=== PATIENT | female | born 1955 | race Caucasian/White ===

== ENCOUNTER 2017-01-26 18:07 | Inpatient (IN) | payer OTHER ==
[~2017-01-26] VITALS: Ht 157.5 cm; Wt 112.0 kg
[2017-01-26 18:56] LABS: HEMATOCRIT 29.7 % (36.0-46.0); MCH 29.2 PG (29.0-34.0); MCHC 32.7 G/DL (30.0-36.0); MCV 89.5 FL (83-99); MEAN PLAT.VOLUME 11.2 uM^3 (9.5-12.4); PLATELET COUNT 153 K/uL (156-360); RBC DIS.WIDTH-CV 12.9 % (11.8-14.6); RBC DIS.WIDTH-SD 42.4 % (39-53); RED BLOOD COUNT 3.32 M/uL (3.80-5.20)
[2017-01-26 19:05] LABS: CHLORIDE 98 mEq/L (99-109)
[2017-01-26 19:06] LABS: POTASSIUM 4.5 mEq/L (3.7-5.4); SODIUM 127 mEq/L (136-147)
[2017-01-26 19:07] LABS: GLUCOSE 83 mg/dL (70-99)
[2017-01-26 19:09] LABS: ANION GAP 11 MEQ/L (2-14)
[2017-01-26 19:11] LABS: GFR ESTIMATE (CALCULATED) 7 mL/min/
[2017-01-26 19:12] LABS: UREA NITROGEN (BUN) 48 mg/dL (9-23)
[2017-01-26 19:18] LABS: TROP-I INTERPRETATION NEGATIVE; TROPONIN-I < 0.01 ng/mL (0.0-0.30)
[2017-01-26 19:27] LABS: ADD MIUA? YES; BILIRUBIN NEGATIVE; BLOOD NEGATIVE; COLOR YELLOW ((YELLOW)); GLUCOSE (STRIP) NEGATIVE; KETONES NEGATIVE; LEUKOCYTES TRACE; NITRITE NEGATIVE; PROTEIN (STRIP) 30; SPECIFIC GRAVITY 1.012 (1.000-1.030); UROBILINOGEN 0.2 MG/DL (0.2-1.0)
[2017-01-26 19:30] LABS: BACTERIA RARE /HPF; EPITHELIAL CELLS RARE /HPF; GRANULAR CASTS 0-5 /LPF; HYALINE CASTS 0-5 /LPF; MUCUS TRACE /LPF; RED BLOOD CELLS 0-5 /HPF (0-5); UCUL ADDED? NO; UNCLASSIFIED CASTS 0-5 /LPF; WHITE BLOOD CELLS 0-5 /HPF (0-5)
[2017-01-26] MEDS ORDERED: NEXIUM40 MG PO (22:29)
[2017-01-26] MEDS ORDERED: CLONAZEPAM0.5 MG PO (22:32)
[2017-01-26] MEDS ORDERED: SEROQUEL100 MG PO (22:33)
[2017-01-26] MEDS ORDERED: CYMBALTA60 MG PO (22:34)
[2017-01-26] MEDS ORDERED: CYMBALTA20 MG PO (22:35)
[2017-01-26] MEDS ORDERED: TOPAMAX200 MG PO (22:35)
[2017-01-26] MEDS ORDERED: SIMVASTATIN40 MG PO (22:36)
[2017-01-26] MEDS ORDERED: LEVOTHYROXINE75 MCG PO (22:37)
[2017-01-26] MEDS ORDERED: LISINOPRIL10 MG PO (22:38)
[2017-01-26] MEDS ORDERED: VITAMIN D2000 UNI1 PO (22:43)
[2017-01-26] MEDS ORDERED: LYRICA150 MG PO (22:43)
[2017-01-26] MEDS ORDERED: TRAMADOL HCL50 MG PO (22:44)
[2017-01-26] MEDS ORDERED: FIORINAL 50-321 EACH PO (22:45)
[2017-01-26 23:20] VITALS: BP 91/66
[2017-01-27 04:05] VITALS: BP 92/54
[2017-01-27 04:18] LABS: HEMATOCRIT 28.6 % (36.0-46.0); MCH 28.8 PG (29.0-34.0); MCHC 32.9 G/DL (30.0-36.0); MCV 87.7 FL (83-99); MEAN PLAT.VOLUME 11.5 uM^3 (9.5-12.4); PLATELET COUNT 131 K/uL (156-360); RBC DIS.WIDTH-CV 12.8 % (11.8-14.6); RBC DIS.WIDTH-SD 41.2 % (39-53); RED BLOOD COUNT 3.26 M/uL (3.80-5.20); WHITE BLOOD COUNT 5.2 K/uL (4.1-10.2)
[2017-01-27 04:48] LABS: CHLORIDE 104 mEq/L (99-109); POTASSIUM 4.7 mEq/L (3.7-5.4); SODIUM 133 mEq/L (136-147)
[2017-01-27 05:06] LABS: GLUCOSE 99 mg/dL (70-99)
[2017-01-27 05:08] LABS: ANION GAP 9 MEQ/L (2-14)
[2017-01-27 05:10] LABS: GFR ESTIMATE (CALCULATED) 11 mL/min/
[2017-01-27 05:11] LABS: UREA NITROGEN (BUN) 42 mg/dL (9-23)
[2017-01-27 06:57] VITALS: BP 110/53
[2017-01-27 11:20] LABS: CK-MB 3.3 ng/mL (0.0-4.9)
[2017-01-27 12:10] VITALS: BP 116/56
[2017-01-27 12:22] LABS: CREATINE KINASE 156 IU/L (1-294); TOTAL CK 156 IU/L (1-294)
[2017-01-27] MEDS ORDERED: ERGOCALCIF50000 UNIT PO (13:21)
[2017-01-27] MEDS ORDERED: OMEPRAZOLE40 M1 PO (13:21)
[2017-01-27] MEDS ORDERED: MELATONIN3 MG PO (13:23)
[2017-01-27] MEDS ORDERED: ZYRTEC10 M3 PO (13:23)
[2017-01-27] MEDS ORDERED: IMODIUM A-D2 M2 PO (13:24)
[2017-01-27 15:43] VITALS: BP 115/76
[2017-01-27 19:30] VITALS: BP 131/60
[2017-01-28] VITALS (7 sets, daily range): BP systolic 121–168; BP diastolic 58–74
[2017-01-28 06:02] LABS: EOSINOPHIL (%) 3.7 % (0-5); EOSINOPHIL COUNT 0.1 K/uL (0-0.3); HEMATOCRIT 29.3 % (36.0-46.0); IMMATURE GRANULOCYTE (%) 0.4 % (0.0-0.7); INSTRUMENT ABS NEUTROPHIL CT 1.2 K/uL; LYMPHOCYTE COUNT 0.8 K/uL (1.0-2.8); MCH 29.8 PG (29.0-34.0); MCHC 33.1 G/DL (30.0-36.0); MCV 89.9 FL (83-99); MEAN PLAT.VOLUME 11.3 uM^3 (9.5-12.4); MONOCYTE (%) 13.3 % (3-12); MONOCYTE COUNT 0.3 K/uL (0-0.8); NEUTROPHIL (%) 48.6 % (45-76); NEUTROPHIL COUNT 1.2 K/uL (1.8-6.4); PLATELET COUNT 132 K/uL (156-360); RBC DIS.WIDTH-CV 13.2 % (11.8-14.6); RBC DIS.WIDTH-SD 43.8 % (39-53); RED BLOOD COUNT 3.26 M/uL (3.80-5.20); WHITE BLOOD COUNT 2.4 K/uL (4.1-10.2)
[2017-01-28 10:01] LABS: ANION GAP 8 MEQ/L (2-14); CHLORIDE 114 MEQ/L (99-109); GLUCOSE 107 mg/dL (70-99); POTASSIUM 4.7 MEQ/L (3.7-5.4); SAMPLE HEMOLYSIS CHECK 0; SAMPLE ICTERIC CHECK 0; SAMPLE LIPEMIA CHECK 0; UREA NITROGEN (BUN) 24 mg/dL (9-23)
[2017-01-28 10:05] LABS: GFR ESTIMATE (CALCULATED) 37 mL/min/; SODIUM 143 MEQ/L (136-147)
[2017-01-28 13:55] LABS: UR CREATININE CONCENTRATION 75.5 MG/DL
[2017-01-29 04:04] VITALS: BP 139/74
[2017-01-29 07:03] LABS: EOSINOPHIL (%) 1.8 % (0-5); EOSINOPHIL COUNT 0.1 K/uL (0-0.3); HEMATOCRIT 28.4 % (36.0-46.0); INSTRUMENT ABS NEUTROPHIL CT 2.8 K/uL; LYMPHOCYTE COUNT 0.8 K/uL (1.0-2.8); MCH 29.7 PG (29.0-34.0); MCHC 33.5 G/DL (30.0-36.0); MCV 88.8 FL (83-99); MONOCYTE COUNT 0.4 K/uL (0-0.8); NEUTROPHIL (%) 68.7 % (45-76); NEUTROPHIL COUNT 2.8 K/uL (1.8-6.4); NRBC (%) 1.5 /100 WBC (0-0); RBC DIS.WIDTH-CV 13.4 % (11.8-14.6); RBC DIS.WIDTH-SD 43.6 % (39-53)
[2017-01-29 07:12] LABS: ANION GAP 12 MEQ/L (2-14); CHLORIDE 116 MEQ/L (99-109); GFR ESTIMATE (CALCULATED) 40 mL/min/; GLUCOSE 97 mg/dL (70-99); MAGNESIUM 1.4 mg/dl (1.3-2.7); POTASSIUM 5.1 MEQ/L (3.7-5.4); SAMPLE HEMOLYSIS CHECK 0; SAMPLE ICTERIC CHECK 0; SAMPLE LIPEMIA CHECK 0; SODIUM 145 MEQ/L (136-147); UREA NITROGEN (BUN) 15 mg/dL (9-23)
[2017-01-29 07:38] LABS: PLAT.SUFFICIENCY ADEQUATE; PLATELET CLUMPS PRESENT - PLATELET COUNT APPEARS ADQ.
[2017-01-29 07:49] LABS: PLATELET COUNT UNABLE TO REPORT K/uL (156-360)
[2017-01-29 11:45] VITALS: BP 151/71
[2017-01-29 15:42] VITALS: BP 143/67
[2017-01-29 22:45] VITALS: BP 124/59
[2017-01-30 07:12] VITALS: BP 137/66
[2017-01-30 08:57] LABS: MCHC 32.3 G/DL (30.0-36.0); MCV 89.8 FL (83-99); MEAN PLAT.VOLUME 11.4 uM^3 (9.5-12.4); NRBC (%) 0.4 /100 WBC (0-0); RBC DIS.WIDTH-CV 13.2 % (11.8-14.6); RBC DIS.WIDTH-SD 43.8 % (39-53); RED BLOOD COUNT 3.34 M/uL (3.80-5.20); WHITE BLOOD COUNT 5.1 K/uL (4.1-10.2)
[2017-01-30 09:00] LABS: PLATELET COUNT 127 K/uL (156-360)
[2017-01-30 09:15] LABS: ANION GAP 7 MEQ/L (2-14); CHLORIDE 112 MEQ/L (99-109); GFR ESTIMATE (CALCULATED) 44 mL/min/; GLUCOSE 87 mg/dL (70-99); MAGNESIUM 1.3 mg/dl (1.3-2.7); POTASSIUM 4.3 MEQ/L (3.7-5.4); SAMPLE HEMOLYSIS CHECK 0; SAMPLE ICTERIC CHECK 0; SAMPLE LIPEMIA CHECK 0; SODIUM 143 MEQ/L (136-147); UREA NITROGEN (BUN) 10 mg/dL (9-23)
[2017-01-30] MEDS ORDERED: LISINOPRIL10 MG PO (10:48)
[2017-01-30] MEDS ORDERED: COLESTID1 GM PO (10:48)
== END 2017-01-30 13:59 | disposition home health service (06) | DRG 683 ==
LOC: EME 18:07 → EDOF 20:22 → 5EAST 20:22 → ENRESERV 20:28 → 5EAST 21:36
PROVIDERS: Emergency Medicine; Hospitalist; Internal Medicine; Internal Medicine Nephrology
DX: N17.0 Acute kidney failure with tubular necrosis (principal); E87.1 Hypo-osmolality and hyponatremia; E87.2 Acidosis; K21.9 Gastro-esophageal reflux disease without esophagitis; I12.9 Hypertensive chronic kidney disease with stage 1 through stage 4 chronic kidney disease, or unspecified chronic kidney disease; N18.3 Chronic kidney disease, stage 3 (moderate); D61.818 Other pancytopenia; F41.9 Anxiety disorder, unspecified; F32.9 Major depressive disorder, single episode, unspecified; E78.5 Hyperlipidemia, unspecified; R29.6 Repeated falls; E86.0 Dehydration; M79.7 Fibromyalgia; Z90.49 Acquired absence of other specified parts of digestive tract; Z79.899 Other long term (current) drug therapy; Z68.42 Body mass index [BMI] 45.0-49.9, adult; Z72.0 Tobacco use
CPT/HCPCS: 70450; 71020; 71250; 76770; 80048; 80048 91; 81003; 82306; 82436; 82533 91; 82550; 82553; 82570; 82607; 82803; 83605; 83735; 83880; 83930; 83935; 84100; 84133; 84300; 84443; 84484; 85025; 85027; 87040; 87493; 93005; 94640; 99281; 99285; J1644; J7030